=== PATIENT | female | born 1945 | race Two or more races ===

== ENCOUNTER 2022-10-05 12:11 | Inpatient (IN) | payer OTHER, MEDICAID ==
[~2022-10-05] VITALS: Ht 160 cm; Wt 62.6 kg
[~2022-10-05 12:11] MED LIST: ACYC400T5 PO
[2022-10-05 15:31] LABS: BASOPHILS % 1.1 % (0.0-2.0); EOSINOPHILS % 3.4 % (0.0-5.0); HEMATOCRIT. 42.5 % (36.0-48.0); HEMOGLOBIN. 14.3 g/dL (12.0-16.0); LYMPHOCYTES % 42.6 % (20.0-50.0); MEAN CORPUSCULAR VOLUME 86.5 fL (81.0-99.0); MEAN PLATELET VOLUME 9.2 fl (7.4-10.4); MONOCYTES % 5.7 % (2.0-8.0); NEUTROPHILS % 47.2 % (40.0-76.0); PLATELET 288 x1000/uL (130-400); RED BLOOD CELL COUNT 4.91 mill/uL (4.2-5.4); RED CELL DISTRIBUTION WIDTH 14.1 % (11.6-14.6)
[2022-10-05 15:44] LABS: CHLORIDE 107 mEq/L (98-107)
[2022-10-05] MEDS ORDERED: ACETAMINOPHEN 325MG TABLET PO ONE (16:15)
[2022-10-05] MEDS ORDERED: ASPIRIN 81MG TABLET PO ONE (17:00)
[2022-10-05] MEDS ORDERED: ACETAMINOPHEN 325MG TABLET PO NR (18:15)
[2022-10-05 19:00] VITALS: BP 144/61
[2022-10-05] MEDS ORDERED: DOCUSATE SODIUM 100MG CAPSULE PO PRN (19:15)
[2022-10-05] MEDS ORDERED: ACETAMINOPHEN 325MG TABLET PO PRN (19:15)
[2022-10-05] MEDS ORDERED: TRAMADOL 50MG TABLET PO PRN (19:15)
[2022-10-05] MEDS ORDERED: GUAIFENESIN 200MG/10ML SUGAR FREE UDC PO PRN (19:15)
[2022-10-05] MEDS ORDERED: MAGNESIUM/ALUMINUM HYDROXIDE/SIMETHICONE 30ML UDC PO PRN (19:15)
[2022-10-05] MEDS ORDERED: ONDANSETRON HCL 4MG/2ML INJ IV PRN (19:15)
[2022-10-05] MEDS ORDERED: NALOXONE HCL 0.4MG/ML VIAL IV PRN (19:15)
[2022-10-05 20:00] VITALS: BP 137/74
[2022-10-05] MEDS: ENOXAPARIN 40MG/0.4ML SYR SUBCUT SCH (20:00)
[2022-10-05] MEDS ORDERED: LISI20TA31 MT (22:06)
[2022-10-06] VITALS: BP 122/80
[2022-10-06 04:00] VITALS: BP 127/66
[2022-10-06 07:22] LABS: EOSINOPHILS % 6.9 % (0.0-5.0); HEMATOCRIT. 38.4 % (36.0-48.0); HEMOGLOBIN. 12.9 g/dL (12.0-16.0); LYMPHOCYTES % 50.2 % (20.0-50.0); MEAN CORPUSCULAR HEMOGLOBIN 28.9 pg (28.0-32.0); MEAN CORPUSCULAR VOLUME 86.1 fL (81.0-99.0); MEAN PLATELET VOLUME 9.4 fl (7.4-10.4); MONOCYTES % 8.4 % (2.0-8.0); NEUTROPHILS % 33.5 % (40.0-76.0); PLATELET 253 x1000/uL (130-400); RED BLOOD CELL COUNT 4.46 mill/uL (4.2-5.4); RED CELL DISTRIBUTION WIDTH 14.5 % (11.6-14.6)
[2022-10-06 08:00] VITALS: BP 122/58
[2022-10-06] MEDS: AMLODIPINE 10MG TABLET PO SCH (09:03)
[2022-10-06] MEDS: ASPIRIN 81MG EC TABLET PO SCH (09:03)
[2022-10-06 09:43] LABS: CHLORIDE 109 mEq/L (98-107)
[2022-10-06 10:30] LABS: HDL CHOLESTEROL 58 mg/dL (40-59); LDL CHOLESTEROL 164 mg/dL (5-100)
[2022-10-06 12:00] VITALS: BP 122/59
[2022-10-06] MEDS ORDERED: REGADENOSON 0.4 MG/5 ML IV NR (15:30)
[2022-10-06 16:30] VITALS: BP 126/48
[2022-10-06 20:00] VITALS: BP 125/65
[2022-10-06] MEDS: ENOXAPARIN 40MG/0.4ML SYR SUBCUT SCH (20:24)
[2022-10-06] MEDS ORDERED: ATORVASTATIN CALCIUM 20MG TABLET PO SCH (21:00)
[2022-10-07] VITALS: BP 129/52
[2022-10-07 00:18] LABS: CLARITY URINE CLEAR (CLEAR); COLOR URINE YELLOW (YELLOW); KETONES URINE NEGATIVE (NEGATIVE); LEUKOCYTE ESTERASE URINE 1+ (NEGATIVE); NITRITE URINE NEGATIVE (NEGATIVE); OCCULT BLOOD URINE NEGATIVE (NEGATIVE); PROTEIN URINE NEGATIVE (NEGATIVE); SPECIFIC GRAVITY URINE 1.017 (1.005-1.030); UROBILINOGEN URINE 0.2 E.U./dL (0.2-1.0)
[2022-10-07 01:15] LABS: *AMPHETAMINES SCREEN URINE NEGATIVE (NEGATIVE); *BARBITURATES SCREEN URINE NEGATIVE (NEGATIVE); *BENZODIAZEPINES SCREEN URINE NEGATIVE (NEGATIVE); *COCAINE SCREEN URINE NEGATIVE (NEGATIVE); CANNABINOID URINE SCREEN NEGATIVE (NEGATIVE); METHADONE URINE SCREEN NEGATIVE (NEGATIVE); OPIATES URINE SCREEN NEGATIVE (NEGATIVE); PHENCYCLIDINE URINE SCREEN NEGATIVE (NEGATIVE)
[2022-10-07 04:00] VITALS: BP 122/59
[2022-10-07 08:00] VITALS: BP 118/60
[2022-10-07] MEDS ORDERED: REGADENOSON 0.4 MG/5 ML IV ONE (09:15)
[2022-10-07] MEDS: ASPIRIN 81MG EC TABLET PO SCH (11:16)
[2022-10-07] MEDS: AMLODIPINE 10MG TABLET PO SCH (11:16)
[2022-10-07 12:00] VITALS: BP 109/76
[2022-10-07 13:09] LABS: BASOPHILS % 1.1 % (0.0-2.0); EOSINOPHILS % 3.1 % (0.0-5.0); HEMATOCRIT. 42.1 % (36.0-48.0); HEMOGLOBIN. 14.2 g/dL (12.0-16.0); LYMPHOCYTES % 35.6 % (20.0-50.0); MEAN CORPUSCULAR HEMOGLOBIN 29.1 pg (28.0-32.0); MEAN CORPUSCULAR VOLUME 86.3 fL (81.0-99.0); MEAN PLATELET VOLUME 9.4 fl (7.4-10.4); MONOCYTES % 5.9 % (2.0-8.0); NEUTROPHILS % 54.3 % (40.0-76.0); PLATELET 279 x1000/uL (130-400); RED BLOOD CELL COUNT 4.88 mill/uL (4.2-5.4)
[2022-10-07 13:18] LABS: CHLORIDE 107 mEq/L (98-107)
[2022-10-07 14:17] VITALS: BP 138/66
== END 2022-10-07 14:55 | disposition home or self-care (01) | DRG 206 ==
LOC: ER 12:11 → 8WST 17:34 → EDBEDREQ 17:43 → EDBEDREQTM 17:43
PROVIDERS: ADMIT Hospitalist; ATTEND Hospitalist
DX: M94.0 Chondrocostal junction syndrome [Tietze] (principal); E78.5 Hyperlipidemia, unspecified; I10 Essential (primary) hypertension; Z88.8 Allergy status to other drugs, medicaments and biological substances; Z79.899 Other long term (current) drug therapy; Z82.49 Family history of ischemic heart disease and other diseases of the circulatory system
CPT/HCPCS: 36415; 71045; 78452; 80048; 80053; 80061; 80305; 81003; 83880; 84484; 85025; 93005; 93017; 93306; 93970; 99285; A9500; J1650; J2785